=== PATIENT | female | born 1985 | race Caucasian/White ===

== ENCOUNTER 2018-08-15 08:00 | Inpatient (IN) ==
[2018-08-15] MEDS ORDERED: *HR* Nalbuphine 10 MG/ML AMPUL IVP PRN (08:51)
[2018-08-15] MEDS ORDERED: Metoclopramide 10 MG/2 ML VIAL IVP PRN (08:51)
[2018-08-15] MEDS ORDERED: Naloxone 0.4 MG/ML INJ IVP PRN ×2 (08:51→17:58)
[2018-08-15] MEDS ORDERED: Ondansetron 4 MG/2 ML VIAL IVP PRN ×2 (08:51→17:58)
[2018-08-15] MEDS ORDERED: Famotidine 20 MG/2 ML VIAL IVP PRN (08:51)
[2018-08-15] MEDS ORDERED: miSOPROStol 25 MCG TABLET VG ONE (08:54)
[2018-08-15] MEDS ORDERED: Ringers Solution, Lactated 1,000 ML IVC SCH (09:00)
[2018-08-15 09:13] LABS: Basophils # 0.1 K/mcL (0.0-0.2); Basophils % 0.4 %; Eosinophils # 0.3 K/mcL (0.0-0.6); Hematocrit 38.2 % (35.3-44.9); Hemoglobin 12.8 g/dL (11.5-15.4); Immature Granulocytes % 0.4 % (0-4); Lymphocytes % 18.2 %; Mean Corpuscular HGB Conc 33.5 g/dL (31.6-35.5); Mean Corpuscular Hemoglobin 31.1 pg (28.0-33.3); Mean Corpuscular Volume 92.7 fL (83.0-100.0); Mean Platelet Volume 10.4 fL (9.4-12.4); Monocytes # 0.9 K/mcL (0.0-1.3); Monocytes % 5.4 %; Platelet Count 395 K/mcL (140-400); Red Blood Count 4.12 M/mcL (3.82-4.97); Red Cell Distribution Width 12.2 % (11.5-14.5); Segmented Neutrophils % 73.6 %
[2018-08-15 09:37] LABS: Amphetamine Screen,Urine Negative ng/mL (Cutoff=1000); Barbiturate Screen,Urine Negative ng/mL (Cutoff=200); Benzodiazepines Screen,Urine Negative ng/mL (Cutoff=200); Cannabinoid Screen,Urine Positive ng/mL (Cutoff = 50); Cocaine Screen,Urine Negative ng/mL (Cutoff= 300); Opiate Screen,Urine Negative ng/mL (Cutoff=300); Phencyclidine Screen,Urine Negative ng/mL (Cutoff=25)
--- NOTE | 2018-08-15 09:57 | OB/GYN History & Physical ---
Date of Encounter: 08/15/18 Time of Encounter: 09:57 Assessment and Plan (1) 40 weeks gestation of Current visit: Yes Status: Acute 32 y/o @ 40+1 weeks, GDMA2 on Metformin, GBS+/A+, smoker Plan: start PCN for GBS ppx, will give cytotec 25mcg Q4hrs per vagina x 1 dose, ok for epidural if she desires, will check fingersticks Q2hrs, anticipate History of Present Illness HPI: 32 y/o @ 40+1 weeks who presents to L&D for IOL for GDMA 2. She does not report LOF, VB or ctxs, feels good FM. Her sugars have been controlled with Metformin 750mg ER. She is A+ and GBS+. Past Med Surg Social Fam HX - Past Medical History Medical history: no medical history Psychiatric history: no psych history - Past Surgical History Surgical History: cholecystectomy Additional surgical history: gall bladder removed 2010 - Social History Smoking Status: Current every day smoker Packs per day: 10 cig daily Alcohol use: none Drug use: none - Family History Mother Living Status: Still Living Hx Family Cardiac Disorders: No Hx Family Respiratory Disorders: No Hx Family Cancer: No Hx Family GI Disorders: No Hx Family Genitourinary Disorders: No Hx Family Endocrine Disorder: No Hx Family Musculoskeletal Disorders: No Hx Family Neuromuscular Disorders: No Hx Family Neurologic Disorders: No Hx Family HEENT Disorders: No Hx Family Autoimmune Disorders: No Hx Family Reproductive Disorders: No Hx Family Psychosocial Disorders: No Hx Family Medical Disorders: No Obstetrical History - Pregnancies : 2 Para: 1 Medications and Allergies Allergy/AdvReac Type Severity Reaction Status Date / Time No Known Allergies Allergy Verified 08/15/18 10:43 Review of System OB All systems PM: reviewed and no additional remarkable complaints except as stated Exam - Constitutional Constitutional: no acute distress - HEENT HEENT: PERRL - Neck Neck exam: normal inspection - Lungs Respiratory exam: CTAB - Cardiovascular Cardiovascular exam: RRR - Abdomen Abdomen: Present: gravid - Extremities Extremities exam: normal inspection - Cervix Dilation: 2 Effacement: 80 Results Result Diagrams: 08/15/18 08:47 Abnormal lab results WBC 16.3 K/mcL (4.3-11.1) H 08/15/18 08:47 Neutrophils # 12.0 K/mcL (1.6-8.9) H 08/15/18 08:47 U Marijuana (THC) Screen Positive ng/mL (Cutoff = 50) H 08/15/18 08:47 All other labs normal. - VTE Reasons for not Prescribing Prophylaxis: Treatment not Indicated - Low risk for VTE
--- NOTE | 2018-08-15 10:12 | Anesthesia Evaluation PreOp ---
Date of Encounter: 08/15/18 Time of Encounter: 10:09 - Past History Planned Operation: JOAQUIN Cardiac History: Denies any Significant Hx Pulmonary History: Smoker, Pack/yr (7pk/yr) OFFAL BALER History: Denies Any Significant HX Other Medical History: Other (Gestational diabetes with q2hr accucheck) Anesthesia History: No Prior Anesthetic Complications, Past Anesthesia (lap cholecystectomy) : Yes Alcohol Use: none Drug use: none - Meds/Allergy Pre-op Review Medications Reviewed: Yes Allergies Reviewed: Yes Beta Blockers on Current Med List: No Anesthesia Results - Labs 08/15/18 08:47 Anesthesia Exam BS 117 BP 125/72 P 116 T 97.8 Blood glucose: 117 Height: 5'6" Weight: 108.9kg NPO (# of Hours): 3 Pain Scale: 2 - HEENT Pupil (Motor): Pupils equal Mallampati: II Teeth: Normal Oral Opening: Greater than 3 - OFFAL BALER LOC: Oriented OFFAL BALER Motor: Normal RUE, Normal LUE, Normal RLE, Normal LLE, Normal Face OFFAL BALER Sensory: Normal: RUE, LUE, RLE, LLE, Face - Cardiac Rhythm: Regular Murmur: None JVD: No Carotid Bruit: No - Pulmonary Breath Sounds: bilateral Clear Respiratory Effort: Symmetrical Anesthesia Assess/Plan ASA Score: 2 Level of consciousness: Cooperative Anesthetic Plan: Epidural Autologous Blood: No Monitoring Plan: Standard Monitors Recovery Plan: Other
[2018-08-15] MEDS ORDERED: Penicillin G Potassium 5,000,000 UNIT in 0.9 % Sodium Chloride Mini Bag 100 ML IVPB ONE (10:43)
[2018-08-15] MEDS ORDERED: Penicillin G Potassium 2,500,000 UNIT in 0.9 % Sodium Chloride 100 ML IVPB SCH (12:00)
[2018-08-15] MEDS ORDERED: Oxytocin 20 units/ LR 1000 mL 20 UNIT/1,000 ML BAG IVC SCH (15:45)
--- NOTE | 2018-08-15 17:39 | OB Labor Progress Note ---
Date of Encounter: 08/15/18 Time of Encounter: 17:39 Labor Progress Note - Subjective Subjective: patient is doing very well - Vital Signs Vital Signs: VSS - Cervix Cervix: 4cm/80% - Heart Tones Heart Tones: CAT 1 - Plan Plan: ok for epidural if patient desires, pitocin now at 12, anticipate
[2018-08-15] MEDS ORDERED: EPHEDrine 50 MG/ML VIAL IVP PRN (17:58)
[2018-08-15] MEDS ORDERED: *HR* Ropivacaine/PF 0.2% 20 ML VIAL EP ONE (17:58)
[2018-08-15] MEDS ORDERED: Fat Emulsions 20% 250 ML IVP ONE (17:58)
[2018-08-15] MEDS ORDERED: *HR* FentaNYL (PF) 100 MCG/2 ML VIAL EP ONE (17:58)
[2018-08-15] MEDS ORDERED: Epidural Premix (fent/bupiv) 110 ML EP SCH (18:00)
[2018-08-15] MEDS ORDERED: *HR* Ropivacaine/PF 0.2% 20 ML VIAL ONE (19:45)
[2018-08-15] MEDS ORDERED: *HR* FentaNYL (PF) 100 MCG/2 ML VIAL ONE (19:45)
[2018-08-15] MEDS ORDERED: Lidocaine -MPF 2% 5 ML VIAL ONE ×2 (19:45→21:46)
--- NOTE | 2018-08-15 21:40 | OB Labor Progress Note ---
Date of Encounter: 08/15/18 Time of Encounter: 21:38 Labor Progress Note - Subjective Subjective: patient is comfortable s/p nubain - Vital Signs Vital Signs: VSS - Cervix Cervix: 4cm - Heart Tones Heart Tones: CAT 1 - Plan Plan: pitocin now @ 16, keep titrating cont monitoring strip, anticipate
--- NOTE | 2018-08-15 22:34 | Anesthesia Progress Note ---
Date of Encounter: 08/15/18 Time of Encounter: 19:50 Anesthesia Note - Note Note: 08/15/18 22:32 JOAQUIN attempted at 2 levels unsuccessfully, then pulled from bedside for stat csection on another patient. Aborted at 2018 with intent to return. Pt tolerated attempts. VSS
--- NOTE | 2018-08-15 22:40 | Anesthesia Procedures ---
Date of Encounter: 08/15/18 Time of Encounter: 21:50 Procedures: Anesthesia - Epidural/Spinal Patient ID/Chart reviewed: Yes Patient examined: Yes OB Eval: Gestational age: 40.1 OB Eval: : 2 OB Eval: Hx Para: 1 OB Eval: Dilated at (cm): 6 OB Eval: Contractions: Non-stressed pattern Consent Obtained: Yes Supplemental Oxygen: None/Room Air Site Prep: Aseptic Technique, Sterile prep and drape, Povidone-Iodine 1% Patient position: upright Local Anesthetic: Lidocaine 1% Amount of Local Anesthetic used: 3 Touhy Needle Gauge: 18 Touhy Needle Depth (cm): 8 Catheter Depth at Skin (cm): 17 Test Dose (1.5% Lido + Epi): Volume given (mls): 3 Test Dose Result: Negative Loading Dose: Fentanyl (mcg): 100 Loading Dose: Other: Ropivicaine 0.2% 10ml Loading Dose Administered: Thru Catheter Infusion Med: 0.125% Bupivacaine w/ 2 mcg/ml Fentanyl Infusion Rate (mls/hr): [address]: Tegaderm, Tape Interspace Used: L4-L5 Loss of Resistance (OSMAN): Yes Blood: No CSF: No Paresthesia: No Procedure: JOAQUIN placed successfully 3rd pass after previously aborted due to emergency to another patient. Explained to patient the possibility of spinal headache with multiple attempts even though spinal fluid was never visualized. Pt understood and tolerated procedure well. VSS and FHT stable throughout. Vitals + FHT's: 2150 BP 131/89 P 77 R 18 2225 BP 113/54 P 67 R 16 FHT 120s
--- NOTE | 2018-08-16 01:34 | OB/GYN Procedure Note ---
Delivery - Delivery Date: 08/16/18 Provider: Dolly Chandler Intrapartum events: none Delivery induction: misoprostol Delivery augmentation: rupture of membranes Delivery monitor: external FHT, external uterine Anesthesia: epidural Quantitated Blood Loss: 100 - Repair Episiotomy: none Laceration Description: None - Complications Delivery complications: none - Disposition Mom disposition: stable in LDR [place] disposition: stable in LDR - Comments Comments: Janet is a 32 y/o now who delivered a viable female infant weight 3390g (7lbs 8oz)@ 0104AM. was delivered TOYIN, no nuchal cord, cord was clamped and cut with infant handed over to mom. APGARs 8/9, EBL 100ml. No lacerations, mother and infant doing very well.
[2018-08-16] MEDS ORDERED: Measles/Mumps/Rubella Vacc 0.5 ML VIAL SQ PRN (03:17)
[2018-08-16] MEDS ORDERED: Oxytocin 20 units/ LR 1000 mL 20 UNIT/1,000 ML BAG IVC SCH (03:17)
[2018-08-16] MEDS: Ibuprofen 600 MG TABLET PO PRN ×3 (04:54→22:13)
[2018-08-16 06:20] LABS: Basophils % 0.2 %; Eosinophils # 0.1 K/mcL (0.0-0.6); Eosinophils % 0.6 %; Hematocrit 33.6 % (35.3-44.9); Hemoglobin 11.3 g/dL (11.5-15.4); Immature Granulocytes % 0.5 % (0-4); Lymphocytes # 2.8 K/mcL (0.6-4.6); Lymphocytes % 14.6 %; Mean Corpuscular HGB Conc 33.6 g/dL (31.6-35.5); Mean Corpuscular Volume 92.3 fL (83.0-100.0); Mean Platelet Volume 10.1 fL (9.4-12.4); Monocytes % 4.9 %; Neutrophils # 15.4 K/mcL (1.6-8.9); Platelet Count 356 K/mcL (140-400); Red Blood Count 3.64 M/mcL (3.82-4.97); Red Cell Distribution Width 12.2 % (11.5-14.5); Segmented Neutrophils % 79.2 %
[2018-08-16] MEDS: Prenatal Vit/FA 1 EACH TABLET PO SCH (07:58)
[2018-08-17 07:39] VITALS: BP 114/74
[2018-08-17] MEDS: Prenatal Vit/FA 1 EACH TABLET PO SCH (08:54)
--- NOTE | 2018-08-17 09:16 | Discharge Summary ---
Date of Encounter: 08/17/18 Time of Encounter: 09:08 - Discharge Diagnosis (1) Status post vaginal delivery Priority: Primary Status: Acute Comments: Continue routine care. Patient meeting day 1 milestones and would like to be discharged home. Voiding without difficulty, bleeding light to moderate, tolerating regular diet, pain well-controlled with Motrin. Discharge home today. (2) Gestational diabetes Priority: Secondary Status: Acute Comments: Follow up for 2 hr GTT 4 weeks Qualifiers: Gestational diabetes mellitus control: oral hypoglycemic-controlled Trimester: unspecified trimester Qualified Code(s): O24.415 - Gestational diabetes mellitus in , controlled by oral hypoglycemic drugs - Discharge Medications Prescriptions: Ibuprofen [Motrin] 600 mg PO Q6HR PRN #60 tablet PRN Reason: Cramping Home Medications: Docusate [Colace] 100 mg PO BID capsule 08/17/18 [Rx] Ibuprofen [Motrin] 600 mg PO Q6HR PRN #60 tablet 08/17/18 [Rx] Vit/FA 1 each PO DAILY tablet 08/17/18 [Rx] Allergies/Adverse Reactions: Allergy/AdvReac Type Severity Reaction Status Date / Time No Known Allergies Allergy Verified 08/15/18 10:43 Data Procedures and tests throughout hospitalization: Laboratory Tests 08/15/18 08/15/18 08/15/18 08:47 08:47 08:47 WBC 16.3 H RBC 4.12 Hgb 12.8 Hct 38.2 MCV 92.7 MCH 31.1 MCHC 33.5 RDW 12.2 Plt Count 395 MPV 10.4 Immature Gran % 0.4 Seg Neutrophils % 73.6 Lymphocytes % 18.2 Monocytes % 5.4 Eosinophils % 2.0 Basophils % 0.4 Neutrophils # 12.0 H Lymphocytes # 3.0 Monocytes # 0.9 Eosinophils # 0.3 Basophils # 0.1 POC Glucose Urine Opiates Screen Negative Ur Barbiturates Screen Negative Ur Phencyclidine Scrn Negative Ur Amphetamines Screen Negative U Benzodiazepines Scrn Negative Urine Cocaine Screen Negative U Marijuana (THC) Screen Positive H Ur Drug Screen Interp See Below Hep Bs Antigen Nonreactive 08/15/18 08/15/18 08/15/18 09:31 11:32 13:34 WBC RBC Hgb Hct MCV MCH MCHC RDW Plt Count MPV Immature Gran % Seg Neutrophils % Lymphocytes % Monocytes % Eosinophils % Basophils % Neutrophils # Lymphocytes # Monocytes # Eosinophils # Basophils # POC Glucose 117 H 100 H 92 Urine Opiates Screen Ur Barbiturates Screen Ur Phencyclidine Scrn Ur Amphetamines Screen U Benzodiazepines Scrn Urine Cocaine Screen U Marijuana (THC) Screen Ur Drug Screen Interp Hep Bs Antigen 08/15/18 08/15/18 08/15/18 16:11 18:04 20:37 WBC RBC Hgb Hct MCV MCH MCHC RDW Plt Count MPV Immature Gran % Seg Neutrophils % Lymphocytes % Monocytes % Eosinophils % Basophils % Neutrophils # Lymphocytes # Monocytes # Eosinophils # Basophils # POC Glucose 86 93 96 Urine Opiates Screen Ur Barbiturates Screen Ur Phencyclidine Scrn Ur Amphetamines Screen U Benzodiazepines Scrn Urine Cocaine Screen U Marijuana (THC) Screen Ur Drug Screen Interp Hep Bs Antigen 08/15/18 08/16/18 08/16/18 22:54 00:27 06:09 WBC 19.4 H RBC 3.64 L Hgb 11.3 L D Hct 33.6 L MCV 92.3 MCH 31.0 MCHC 33.6 RDW 12.2 Plt Count 356 MPV 10.1 Immature Gran % 0.5 Seg Neutrophils % 79.2 Lymphocytes % 14.6 Monocytes % 4.9 Eosinophils % 0.6 Basophils % 0.2 Neutrophils # 15.4 H Lymphocytes # 2.8 Monocytes # 1.0 Eosinophils # 0.1 Basophils # 0.0 POC Glucose 113 H 98 Urine Opiates Screen Ur Barbiturates Screen Ur Phencyclidine Scrn Ur Amphetamines Screen U Benzodiazepines Scrn Urine Cocaine Screen U Marijuana (THC) Screen Ur Drug Screen Interp Hep Bs Antigen Date of admission: 08/15/18 08:07 Primary care physician: Mark Prakash CNP Consults: 08/16/18 03:17 Consult to Rug Dyer Helper [CONS] Routine Comment: Vaginal delivery, consult needed Discharging clinician: Leigh Beard Anticipated date of discharge: 08/17/18 - Patient Status Disposition: Home, Self-Care Condition: Good Functional capacity at discharge: independent ambulation Overall status at discharge: patient is progressing back to baseline - Discharge Instructions Follow Up With: Mark Prakash CNP [Primary Care Provider] - Dolly Chandler MD [Partnered Physician] - Additional Instructions: 2 hr GTT to be done at PP visit - Diet and Activity Activity: resume usual activities as tolerated Diet: regular diet Hospital Course Reason for admission: induction of labor Delivery: Episiotomy: none Laceration: none Other procedures: none complications: none Discharge diagnosis: IUP at term delivered [place] baby: female Hospital course: Patient is doing well day 1 post delivery. Tolerating regular diet, voiding without difficulty, pain well-controlled with Motrin, bleeding light to moderate. Plan to discharge patient home today. Delivery - Delivery Date: 08/16/18 Provider: Dolly Chandler Intrapartum events: none Delivery induction: misoprostol Delivery augmentation: rupture of membranes Delivery monitor: external FHT, external uterine Anesthesia: epidural Quantitated Blood Loss: 100 - Repair Episiotomy: none Laceration Description: None - Complications Delivery complications: none - Disposition Mom disposition: stable in LDR [place] disposition: stable in LDR - Comments Comments: Janet is a 32 y/o now who delivered a viable female weight 3390g (7lbs 8oz)@ 0104AM. Infant was delivered TOYIN, no nuchal cord, cord was clamped and cut with handed over to mom. APGARs 8/9, EBL 100ml. No lacerations, mother and doing very well. Time Attestation: Total time spent providing and/or coordinating discharge services: Time Spent: Less than 30 minutes Exam - Constitutional Vitals: Temp Pulse Resp BP Pulse Ox 98.2 F 84 14 114/74 96 08/16/18 21:00 08/17/18 07:38 08/17/18 07:38 08/17/18 07:38 08/17/18 07:38 General appearance IM: A&O X 3, pleasant, no acute distress - Respiratory Respiratory exam: Present: CTAB - Cardiovascular Cardiovascular exam IM: Present: RRR, +S1, +S2 - GI/Abdominal GI/Abdominal exam IM: normal bowel sounds - Rectal Rectal exam: deferred - Uterine Tone: Firm Uterus Position: At Umbilicus - Extremities Exam Extremities exam IM: Present: full ROM, normal capillary refill, normal inspection, pedal edema - Neurological Exam Neurological exam: alert, normal gait, oriented X3
[2018-08-17] MEDS: Ibuprofen 600 MG TABLET PO PRN (12:02)
== END 2018-08-17 12:05 | disposition home or self-care (01) | DRG 807 ==
LOC: 1NENULAB 08:07 → 1NENUOBS 08-16 03:15
PROVIDERS: ADMIT Student in an Organized Health Care Education/Training Program; ATTEND Student in an Organized Health Care Education/Training Program